=== PATIENT | male | born 1945 | race Caucasian/White ===

== ENCOUNTER → 2017-06-05 | Outpatient (CLI) | payer OTHER | END | disposition home or self-care (01) | LOC: CVU 06:42 | PROVIDERS: ATTEND Internal Medicine Cardiovascular Disease | DX: I65.23 Occlusion and stenosis of bilateral carotid arteries (principal); I70.203 Unspecified atherosclerosis of native arteries of extremities, bilateral legs; I25.10 Atherosclerotic heart disease of native coronary artery without angina pectoris; I10 Essential (primary) hypertension; E78.5 Hyperlipidemia, unspecified; J44.9 Chronic obstructive pulmonary disease, unspecified; Z87.891 Personal history of nicotine dependence; Z95.1 Presence of aortocoronary bypass graft | CPT/HCPCS: 93306; 93880; 93922; 93925 ==

== ENCOUNTER 2017-10-15 09:12 | Day surgery (SDC) | payer OTHER ==
[~2017-10-15] VITALS: Ht 175.3 cm; Wt 89.2 kg
[2017-10-15] MEDS ORDERED: ASPI-496 PO (10:00)
[2017-10-15] MEDS ORDERED: ROSU20TA PO (10:00)
[2017-10-15] MEDS ORDERED: PRED20TA PO (10:00)
[2017-10-15] MEDS ORDERED: CLOP75TA PO (10:00)
[2017-10-15] MEDS ORDERED: DIPH25CA61 PO (10:00)
[2017-10-15] MEDS ORDERED: METO-282 PO (10:00)
[2017-10-15] MEDS ORDERED: CIME200T6 PO (10:00)
[2017-10-15 10:01] VITALS: BP 162/76
[2017-10-15] MEDS ORDERED: SODIUM CHLORIDE 0.9% 1,000 ML IV ONE (10:30)
[2017-10-15 10:33] LABS: BASOPHILS # (AUTO) 0.03 x10^3/uL (0-0.1); BASOPHILS % (AUTO) 0 % (0-1); EOSINOPHILS # (AUTO) 0.01 x10^3/uL (0-0.4); EOSINOPHILS % (AUTO) 0 % (1-7); LYMPHOCYTES # (AUTO) 1.25 x10^3/uL (1-3.4); LYMPHOCYTES % (AUTO) 14 % (22-44); MD NO; MEAN CORPUSCULAR HEMOGLOBIN 32.9 pg (27.5-34.5); MEAN CORPUSCULAR HGB CONC 33.9 g/dL (33.2-36.2); MEAN CORPUSCULAR VOLUME 97.1 fL (81-97); MEAN PLATELET VOLUME 7.5 fL (7.4-10.4); MONOCYTES # (AUTO) 0.31 x10^3/uL (0.2-0.8); MONOCYTES % (AUTO) 4 % (2-9); NEUTROPHILS # (AUTO) 7.48 x10^3/uL (1.8-6.8); NEUTROPHILS % (AUTO) 82 % (42-75); PLATELET COUNT 242 x10^3/uL (130-400); RED BLOOD COUNT 5.35 x10^6/uL (4.38-5.82); RED CELL DISTRIBUTION WIDTH 13.9 % (9.4-14.8)
[2017-10-15 10:43] LABS: ANION GAP 9 mmol/L (5-15); CALCIUM 9.2 mg/dL (8.5-10.1); CHLORIDE 106 mmol/L (98-107)
[2017-10-15] MEDS ORDERED: LIDOCAINE 2%, 20ML ONE (11:01)
[2017-10-15] MEDS ORDERED: FENTANYL PF 100 MCG/2ML ONE (11:24)
[2017-10-15] MEDS ORDERED: PROTAMINE SULFATE 10 MG/ML, 25ML ONE (11:24)
[2017-10-15] MEDS ORDERED: FLUMAZENIL 0.1 MG/1 ML, 5ML ONE (11:24)
[2017-10-15] MEDS ORDERED: MIDAZOLAM 1 MG/ML, 2ML ONE (11:24)
[2017-10-15] MEDS ORDERED: NALOXONE 1 MG/ML, 2ML ONE (11:24)
[2017-10-15] MEDS ORDERED: HEPARIN 1,000 UNITS/ML, 10ML ONE (11:24)
[2017-10-15] MEDS ORDERED: VISIPAQUE 270 MG/ML, 150ML BOTTLE ONE (11:30)
== END 2017-10-15 19:01 ==
LOC: OUT 09:12
PROVIDERS: ATTEND Internal Medicine Cardiovascular Disease
DX: I70.213 Atherosclerosis of native arteries of extremities with intermittent claudication, bilateral legs (principal); I10 Essential (primary) hypertension; J44.9 Chronic obstructive pulmonary disease, unspecified; Z98.890 Other specified postprocedural states
CPT/HCPCS: 36415; 37221; 75625; 75716; 80048; 85025; 99156; 99157; C1725; C1751; C1760; C1769; C1876; C1894; J1644; J2250; J3010; J3490; J7030; Q9966; J2720; J2310

== ENCOUNTER → 2017-11-15 | Outpatient (CLI) | payer OTHER ==
[~2017-11-15] MED LIST: ASPI-496 PO; BIOT5TAB PO; CEPH-376 PO; CIME200T6 PO; CLOP75TA PO; DIPH25CA61 PO; FAMO40TA61 PO; FISH1CAP PO; HYDR-3240 PO; METO-282 PO; MULT-658 PO; PRED20TA PO; ROSU20TA PO; UBID1CAP43 PO; VIT1TABL32 PO
[2017-11-15 15:38] LABS: BASOPHILS # (AUTO) 0.02 x10^3/uL (0-0.1); BASOPHILS % (AUTO) 0 % (0-1); EOSINOPHILS % (AUTO) 1 % (1-7); LYMPHOCYTES # (AUTO) 2.98 x10^3/uL (1-3.4); LYMPHOCYTES % (AUTO) 29 % (22-44); MD NO; MEAN CORPUSCULAR HEMOGLOBIN 32.6 pg (27.5-34.5); MEAN CORPUSCULAR HGB CONC 33.9 g/dL (33.2-36.2); MEAN CORPUSCULAR VOLUME 96.1 fL (81-97); MEAN PLATELET VOLUME 7.6 fL (7.4-10.4); MONOCYTES # (AUTO) 0.93 x10^3/uL (0.2-0.8); MONOCYTES % (AUTO) 9 % (2-9); NEUTROPHILS # (AUTO) 6.33 x10^3/uL (1.8-6.8); NEUTROPHILS % (AUTO) 61 % (42-75); PLATELET COUNT 239 x10^3/uL (130-400); RED BLOOD COUNT 5.06 x10^6/uL (4.38-5.82); RED CELL DISTRIBUTION WIDTH 14.7 % (9.4-14.8)
[2017-11-15 15:43] LABS: ALANINE AMINOTRANSFERASE 21 U/L (12-78); ALBUMIN 3.7 g/dL (3.4-5.0); ANION GAP 7 mmol/L (5-15); CHLORIDE 102 mmol/L (98-107)
[2017-11-15 15:46] LABS: ALKALINE PHOSPHATASE 58 U/L (45-117); BILIRUBIN,TOTAL 0.5 mg/dL (0.2-1.0); CREATININE 1.17 mg/dL (0.7-1.3); TOTAL PROTEIN 8.3 g/dL (6.4-8.2)
== END | disposition home or self-care (01) ==
LOC: STAR 14:27
PROVIDERS: ATTEND Surgery
DX: Z01.818 Encounter for other preprocedural examination (principal); I73.9 Peripheral vascular disease, unspecified
CPT/HCPCS: 36415; 80053; 85025; 93005

== ENCOUNTER → 2017-11-30 | Outpatient (CLI) | payer OTHER | END | disposition home or self-care (01) | LOC: CFH 12:09 | PROVIDERS: ATTEND Family Medicine | DX: J84.10 Pulmonary fibrosis, unspecified (principal); Z98.890 Other specified postprocedural states | CPT/HCPCS: 71046 ==

== ENCOUNTER → 2018-03-14 | Outpatient (CLI) | payer OTHER | END | disposition home or self-care (01) | LOC: CVU 07:45 | PROVIDERS: ATTEND Surgery | DX: I70.202 Unspecified atherosclerosis of native arteries of extremities, left leg (principal); I74.5 Embolism and thrombosis of iliac artery; E78.5 Hyperlipidemia, unspecified; J44.9 Chronic obstructive pulmonary disease, unspecified | CPT/HCPCS: 93922; 93925; 93978 ==

== ENCOUNTER 2018-10-02 14:02 | Outpatient (CLI) | payer BC, OTHER | END 2018-10-02 23:59 | disposition home or self-care (01) | LOC: CVU 14:02 | PROVIDERS: ATTEND Surgery | DX: I65.23 Occlusion and stenosis of bilateral carotid arteries (principal); I77.1 Stricture of artery; I74.19 Embolism and thrombosis of other parts of aorta; I10 Essential (primary) hypertension; E78.5 Hyperlipidemia, unspecified; J44.9 Chronic obstructive pulmonary disease, unspecified; Z95.1 Presence of aortocoronary bypass graft; Z87.891 Personal history of nicotine dependence | CPT/HCPCS: 93880; 93922; 93926; 93978 ==

== ENCOUNTER 2019-04-30 07:54 | Outpatient (CLI) | payer BC | END 2019-04-30 23:59 | disposition home or self-care (01) | LOC: CVU 07:54 | PROVIDERS: ATTEND Surgery | DX: I65.22 Occlusion and stenosis of left carotid artery (principal); I74.5 Embolism and thrombosis of iliac artery; I77.89 Other specified disorders of arteries and arterioles; I10 Essential (primary) hypertension; E78.5 Hyperlipidemia, unspecified; I25.10 Atherosclerotic heart disease of native coronary artery without angina pectoris; Z95.820 Peripheral vascular angioplasty status with implants and grafts; Z95.1 Presence of aortocoronary bypass graft | CPT/HCPCS: 93880; 93922; 93925; 93978 ==

== ENCOUNTER 2020-02-18 12:55 | Outpatient (CLI) | payer BC ==
[~2020-02-18 12:55] MED LIST changes: -ROSU20TA PO; +ROSU20TA2 PO
== END 2020-02-18 23:59 | disposition home or self-care (01) ==
LOC: CVU 12:55
PROVIDERS: ATTEND Surgery
DX: I65.23 Occlusion and stenosis of bilateral carotid arteries (principal); I74.5 Embolism and thrombosis of iliac artery; I10 Essential (primary) hypertension; E78.5 Hyperlipidemia, unspecified; Z95.1 Presence of aortocoronary bypass graft; I77.4 Celiac artery compression syndrome; I70.203 Unspecified atherosclerosis of native arteries of extremities, bilateral legs
CPT/HCPCS: 93880; 93922; 93925; 93978

== ENCOUNTER → 2020-07-20 | Outpatient (CLI) | payer BC | END | disposition home or self-care (01) | LOC: CFH 09:16 | PROVIDERS: ATTEND Family Medicine | DX: Z12.2 Encounter for screening for malignant neoplasm of respiratory organs (principal); J43.2 Centrilobular emphysema; I25.10 Atherosclerotic heart disease of native coronary artery without angina pectoris; R91.8 Other nonspecific abnormal finding of lung field; R59.0 Localized enlarged lymph nodes; Z87.891 Personal history of nicotine dependence | CPT/HCPCS: 76536; G0297 ==

== ENCOUNTER 2020-07-30 12:41 | Outpatient (CLI) | payer BC ==
[2020-07-30] MEDS ORDERED: LIDOCAINE-MPF 1%, 5ML ONE (12:52)
== END 2020-07-30 23:59 | disposition home or self-care (01) ==
LOC: RAD 12:41
PROVIDERS: ATTEND Family Medicine
DX: R59.1 Generalized enlarged lymph nodes (principal)
CPT/HCPCS: 10005; 38505; 76942; 88305; 88341; 88342

== ENCOUNTER → 2021-01-17 | Outpatient (CLI) | payer BC ==
[~2021-01-17] MED LIST changes: +HYDR-2214 PO; -HYDR-3240 PO
== END | disposition home or self-care (01) ==
LOC: CVU 12:39
PROVIDERS: ATTEND Surgery
DX: I65.23 Occlusion and stenosis of bilateral carotid arteries (principal); I10 Essential (primary) hypertension; I70.203 Unspecified atherosclerosis of native arteries of extremities, bilateral legs; Z95.1 Presence of aortocoronary bypass graft
CPT/HCPCS: 93880; 93922; 93926; 93978

== ENCOUNTER → 2021-04-11 | Outpatient (CLI) | payer BC | END | disposition home or self-care (01) | LOC: CVU 07:05 | PROVIDERS: ATTEND Internal Medicine Cardiovascular Disease | DX: I34.0 Nonrheumatic mitral (valve) insufficiency (principal); R60.9 Edema, unspecified; I10 Essential (primary) hypertension; I45.10 Unspecified right bundle-branch block; I73.9 Peripheral vascular disease, unspecified; Z95.1 Presence of aortocoronary bypass graft | CPT/HCPCS: 93306; 93356; 93970 ==